=== PATIENT | female | born 1990 | race Caucasian/White ===

== ENCOUNTER 2017-04-23 12:29 | Outpatient (CLI) | payer MEDICAID ==
[~2017-04-23] VITALS: Ht 170.2 cm; Wt 94.1 kg
[~2017-04-23 12:29] MED LIST: FIORICET 325 MG1 TA1 PO; MOTRIN 600600 MG/TAB PO; PERCOCET 325 MG1 TA2 PO; PRENATAL1 TA1 PO; TYLENOL 325MG325 MG PO
[2017-04-23 12:30] VITALS: BP 108/55; PULSE 79; TEMP 98
[2017-04-23 12:41] VITALS: BP 108/55; PULSE 79; TEMP 98
[2017-04-23 13:13] VITALS: PULSE 82
== END 2017-04-23 13:15 | disposition home or self-care (01) ==
LOC: LDRO 12:29
DX: O26.893 Other specified pregnancy related conditions, third trimester (principal); R10.9 Unspecified abdominal pain; Z3A.31 31 weeks gestation of pregnancy

== ENCOUNTER 2017-05-22 14:31 | Inpatient (IN) | payer MEDICAID ==
[~2017-05-22] VITALS: Ht 167.6 cm; Wt 97.7 kg
[2017-05-24] MEDS ORDERED: CALCIUM CARBON650 M2 (16:12)
[2017-05-24] MEDS ORDERED: MACROBID 1100 MG/CAP PO (16:12)
[2017-06-09] MEDS ORDERED: PEPCID AC20 MG PO (16:20)
[2017-06-17] VITALS (18 sets, daily range): BP systolic 98–134; BP diastolic 49–84; PULSE 54–83; TEMP 97.8–98.3
[2017-06-17 06:20] LABS: BASO % 0.2 % (0.0-2.0); EOS # 0.1 (0.0-0.7); EOS % 0.7 % (0-4.0); GRAN # 13.1 (1.4-6.5); GRAN % 81.6 % (42.2-75.2); HEMATOCRIT 37.2 % (37.0-47.0); HEMOGLOBIN 12.8 g/dl (12.5-16.0); LYMPH # 1.8 (1.2-3.4); MEAN CELL VOLUME 99 fl (80.0-100.0); MEAN CORPUSCULAR HEMOGLOBIN 34 pg (27.0-31.0); MEAN CORPUSCULAR HGB CONC 34 g/dl (33.0-37.0); MEAN PLATELET VOLUME 10.5 fl (7.4-10.4); MONO # 0.8 (0.1-0.6); MONO % 5.1 % (1.7-9.3); PLATELET COUNT 220 K/mm3 (130-400); RED BLOOD COUNT 3.76 M/mm3 (4.10-5.30)
[2017-06-18 02:50] VITALS: BP 91/52; PULSE 62; TEMP 98.5
[2017-06-18] MEDS ORDERED: PERCOCET 325 MG1 TA2 PO (07:36)
[2017-06-18] MEDS ORDERED: IBU600 MG PO (07:36)
[2017-06-18 07:44] LABS: HEMATOCRIT 37.6 % (37.0-47.0); HEMOGLOBIN 12.5 g/dl (12.5-16.0); MEAN CELL VOLUME 101 fl (80.0-100.0); MEAN CORPUSCULAR HEMOGLOBIN 34 pg (27.0-31.0); MEAN CORPUSCULAR HGB CONC 33 g/dl (33.0-37.0); MEAN PLATELET VOLUME 10.8 fl (7.4-10.4); PLATELET COUNT 202 K/mm3 (130-400); RED BLOOD COUNT 3.71 M/mm3 (4.10-5.30); WHITE BLOOD COUNT 13.5 K/mm3 (4.8-10.8)
[2017-06-18 07:46] LABS: ADD PATHOLOGY DIFF REVIEW NO
[2017-06-18 08:00] VITALS: BP 102/58; PULSE 59; TEMP 97.9
[2017-06-18 09:32] LABS: BAND 45 % (0-10); LYMPHOCYTE 13 % (20.0-51.0); NEUTROPHILS 42 % (42.0-75.2); PLATELET ESTIMATE NORMAL (NORMAL); TOTAL CELLS COUNTED 100
[2017-06-18 12:30] VITALS: BP 102/52; PULSE 61; TEMP 98.4
[2017-06-18 17:00] VITALS: BP 102/58; PULSE 74; TEMP 98.2
== END 2017-06-18 18:15 | disposition home or self-care (01) | DRG 766 ==
LOC: OB → LDR 06-17 07:43 → OB 06-18 18:15
PROVIDERS: Obstetrics & Gynecology
PROC: 10D00Z1 Extraction of Products of Conception, Low, Open Approach (ICD-10-PCS; principal; 2017-06-17)
PROC: 0UB70ZZ Excision of Bilateral Fallopian Tubes, Open Approach (ICD-10-PCS; 2017-06-17)
DX: O34.211 Maternal care for low transverse scar from previous cesarean delivery (principal); N85.8 Other specified noninflammatory disorders of uterus; O99.334 Smoking (tobacco) complicating childbirth; F17.210 Nicotine dependence, cigarettes, uncomplicated; Z3A.39 39 weeks gestation of pregnancy; Z37.0 Single live birth; Z40.03 Encounter for prophylactic removal of fallopian tube(s)
CPT/HCPCS: J0690; J1885; J2270; J2405; J2590; J2704; J3010; J7120

== ENCOUNTER 2017-05-24 15:48 | Outpatient (CLI) | payer MEDICAID ==
[~2017-05-24] VITALS: Ht 170.2 cm; Wt 96.5 kg
[2017-05-24 16:07] VITALS: BP 111/70; PULSE 88; TEMP 99
[2017-05-24] MEDS ORDERED: MACROBID 1100 MG/CAP PO (16:12)
[2017-05-24] MEDS ORDERED: CALCIUM CARBON650 M2 (16:12)
[2017-05-24 16:30] VITALS: BP 105/58; PULSE 75
[2017-05-24 16:40] LABS: BASO % 0.1 % (0.0-2.0); EOS # 0.1 (0.0-0.7); GRAN # 11.4 (1.4-6.5); GRAN % 77.6 % (42.2-75.2); LYMPH # 2.1 (1.2-3.4); LYMPH % 14.3 % (20.0-51.0); MEAN CELL VOLUME 98 fl (80.0-100.0); MEAN CORPUSCULAR HEMOGLOBIN 34 pg (27.0-31.0); MEAN CORPUSCULAR HGB CONC 35 g/dl (33.0-37.0); MEAN PLATELET VOLUME 10.5 fl (7.4-10.4); MONO # 0.8 (0.1-0.6); MONO % 5.7 % (1.7-9.3); PLATELET COUNT 221 K/mm3 (130-400); RED BLOOD COUNT 3.54 M/mm3 (4.10-5.30); WHITE BLOOD COUNT 14.7 K/mm3 (4.8-10.8)
[2017-05-24 16:50] LABS: ADJUSTED CALCIUM 9.4 mg/dL (8.4-10.2); ALBUMIN 3.4 gm/dL (3.5-5.0); BILIRUBIN,TOTAL 0.3 mg/dL (0.0-1.0); CALCIUM 8.9 mg/dL (8.4-10.2); CREATININE, serum 0.57 mg/dL (0.52-1.25); POTASSIUM 3.6 mmol/L (3.4-5.0); TOTAL PROTEIN 5.8 gm/dL (6.4-8.2)
[2017-05-24 16:56] LABS: HEMATOCRIT 34.6 % (37.0-47.0)
[2017-05-24 17:05] VITALS: BP 113/67; PULSE 77
== END 2017-05-24 17:17 | disposition home or self-care (01) ==
LOC: LDRO 15:48 → LDR 15:50 → LDRO 17:17
PROVIDERS: Obstetrics & Gynecology
DX: O99.613 Diseases of the digestive system complicating pregnancy, third trimester (principal); R10.11 Right upper quadrant pain; Z3A.35 35 weeks gestation of pregnancy

== ENCOUNTER 2017-06-09 16:10 | Outpatient (CLI) | payer MEDICAID ==
[~2017-06-09] VITALS: Ht 167.6 cm; Wt 98.6 kg
[~2017-06-09 16:10] MED LIST changes: +CALCIUM CARBON650 M2; +MACROBID 1100 MG/CAP PO
[2017-06-09 16:20] VITALS: BP 118/65; PULSE 84; TEMP 98.4
[2017-06-09] MEDS ORDERED: PEPCID AC20 MG PO (16:20)
[2017-06-09 16:45] VITALS: BP 109/69; PULSE 86
== END 2017-06-09 16:50 | disposition home or self-care (01) ==
LOC: LDRO 16:10 → LDR 16:15 → LDRO 16:50
DX: Z34.83 Encounter for supervision of other normal pregnancy, third trimester (principal); Z3A.38 38 weeks gestation of pregnancy
CPT/HCPCS: OP

== ENCOUNTER 2017-06-14 19:57 | Outpatient (CLI) | payer MEDICAID ==
[~2017-06-14] VITALS: Ht 170.2 cm; Wt 97.7 kg
[~2017-06-14 19:57] MED LIST changes: +PEPCID AC20 MG PO
[2017-06-14 21:20] VITALS: BP 126/72; PULSE 80; TEMP 97.6
== END 2017-06-14 21:20 | disposition home or self-care (01) ==
LOC: LDRO 19:57 → LDR 20:00 → LDRO 21:20
DX: O62.2 Other uterine inertia (principal); Z3A.38 38 weeks gestation of pregnancy
CPT/HCPCS: OP

== ENCOUNTER 2023-11-13 15:30 | Emergency (ER) | payer OTHER ==
[~2023-11-13] VITALS: Ht 167.6 cm; Wt 90.9 kg
[~2023-11-13 15:30] MED LIST changes: +IBU600 MG PO
[2023-11-13 15:34] VITALS: TEMP 97.6
[2023-11-13] MEDS ORDERED: PREDNISONE20 MG PO (19:05)
[2023-11-13] MEDS ORDERED: COMBIRESP IH (19:05)
[2023-11-13] MEDS ORDERED: IPRATROPIUM BROM3 M1 IH (19:05)
[2023-11-13 19:29] VITALS: BP 125/77; PULSE 72
[2023-11-13 19:59] LABS: ALBUMIN 3.9 g/dL (3.5-5.0); ANION GAP 11 mmol/L (7-16); BLOOD UREA NITROGEN 10 mg/dL (7-19); CALCIUM 9.5 mg/dL (8.4-10.2); CHLORIDE 110 mEq/L (98-107); CREATININE, serum 0.86 mg/dL (0.57-1.11); GLUCOSE 86 mg/dL (70-99); POTASSIUM 3.5 mEq/L (3.5-4.5); SODIUM 141 mEq/L (136-145)
[2023-11-13 20:00] LABS: ALANINE AMINOTRANSFERASE 25 U/L (0-55); ALKALINE PHOSPHATASE 88 U/L (40-150); AST,SGOT 21 U/L (5-34); BILIRUBIN,TOTAL 0.3 mg/dL (0.2-1.2); TROPONIN-I < 0.010 ng/mL (0.00-0.033)
[2023-11-13] MEDS ORDERED: NS 250 ML IV ONE (20:15)
[2023-11-13] MEDS ORDERED: methylPREDNISolone Sod Succ 125 MG/2 ML VIAL IV ONE (20:15)
[2023-11-13 20:21] LABS: BASO % 0.1 % (0.0-2.0); EOS # 0.2 K/mm3 (0.0-0.7); GRAN % 59.1 % (42.2-75.2); HEMATOCRIT 40.7 % (37.0-47.0); HEMOGLOBIN 13.9 g/dl (12.5-16.0); LYMPH # 2.9 K/mm3 (1.2-3.4); LYMPH % 34.2 % (20.0-51.0); MEAN CELL VOLUME 94 fl (80.0-100.0); MEAN CORPUSCULAR HEMOGLOBIN 32 pg (27-31); MEAN CORPUSCULAR HGB CONC 34 g/dl (33.0-37.0); MEAN PLATELET VOLUME 9.2 fl (7.4-10.4); MONO # 0.4 K/mm3 (0.1-0.6); MONO % 4.4 % (1.7-9.3); PLATELET COUNT 329 K/mm3 (130-400); RED BLOOD COUNT 4.31 M/mm3 (4.10-5.30); REDCELL DISTRIBUTION WIDTH-CV 12.9 % (11.5-14.5)
== END 2023-11-13 19:29 | disposition home or self-care (01) ==
LOC: COL.ER 15:30
PROVIDERS: Emergency Medicine
DX: J98.01 Acute bronchospasm (principal); F17.210 Nicotine dependence, cigarettes, uncomplicated
CPT/HCPCS: J2919; J7050